=== PATIENT | male | born 1950 | race Caucasian/White ===

== ENCOUNTER 2017-11-02 16:19 | Emergency (ER) | payer BC ==
[~2017-11-02 16:19] MED LIST: Iopamidol 370 76% 100 ML VIAL ONE
[2017-11-02 16:53] LABS: #Basophils 0.1 thou/uL (0.0-0.2); #Eosinphils 0.2 thou/uL (0.0-0.7); #Lymphocytes 1.2 thou/uL (1.20-3.40); #Monocytes 0.8 thou/uL (0.11-0.59); #Neutrophils 7.5 thou/uL (1.40-6.50); %Basophils 1.2 % (0.0-1.0); %Eosinophils 1.6 % (0.0-10.0); %Lymphocytes 12.7 % (21.0-51.0); %Monocytes 7.8 % (0.0-10.0); %Neutrophils 76.7 % (42.0-75.0); Hemoglobin 13.6 g/dL (14.0-18.0); Mean Corpuscular HGB CONC 34.8 g/dL (32.0-36.0); Mean Corpuscular Hemoglobin 30.1 pg (27.0-31.0); Mean Corpuscular Volume 86.7 fl (80.0-94.0); Mean Platelet Volume 7.5 fL (7.4-10.4); Platelet Count 187 thou/uL (130-400); RBC Distribution Width 11.3 % (11.5-14.5); Red Blood Cell (RBC) Count 4.52 mill/uL (4.70-6.10); White Blood Cell (WBC) Count 9.7 thou/uL (4.8-10.8)
[2017-11-02] MEDS ORDERED: Ondansetron HCl/PF 4 MG/2 ML Vial ONE (16:54)
[2017-11-02] MEDS ORDERED: Morphine 10 MG/ML VIAL ONE (16:54)
[2017-11-02 17:10] LABS: ALT (SGPT) 24 U/L (8-55); AST (SGOT) 15 U/L (5-34); Albumin 3.9 g/dL (3.4-4.8); Alkaline Phosphatase 71 U/L (40-150); Anion Gap 11 mmol/L (10-20); BUN (Urea Nitrogen) 16 mg/dL (8.4-25.7); Bilirubin, Total 0.6 mg/dL (0.2-1.2); CKMB 0.5 ng/mL (0-6.6); Calc. Creatinine Clearance 0 mL/min (70-130); Calcium 9.1 mg/dL (7.8-10.44); Carbon Dioxide 25 mmol/L (23-31); Chloride 109 mmol/L (98-107); Estimated GFR-MDRD 88; Globulin 3.1 g/dL (2.4-3.5); Glucose 120 mg/dL (80-115); Lipase 15 U/L (8-78); Potassium 3.7 mmol/L (3.5-5.1); Sodium 141 mmol/L (136-145); Troponin I Less than 0.010 ng/mL (< 0.028)
[2017-11-02 17:13] LABS: Bilirubin Negative (Negative); Blood, Urine Trace (Negative); Clarity Clear (Clear); Glucose, Urine (Dipstick) Negative (Negative); Leukocyte Negative (Negative); Nitrite Negative (Negative); Protein, Urine (Dipstick) Negative (Neg-Trace); Specific Gravity, Urine 1.015 (1.005-1.030); Urobilinogen 0.2 mg/dL (0.2-1.0)
[2017-11-02 17:22] LABS: RBC/HPF 0-3 HPF (0-3)
[2017-11-02 17:23] LABS: Bacteria/HPF Rare-Few HPF (None Seen); Squamous Epithelial None Seen HPF (0-3); WBC/HPF None Seen HPF (0-3)
[2017-11-02] MEDS ORDERED: metroNIDAZOLE 500 MG/100 ML BAG ONE (18:08)
[2017-11-02] MEDS ORDERED: Ciprofloxacin Lactate/D5W 400 mg/200 ml Premix ONE (18:41)
--- NOTE | 2017-11-02 18:57 | CT ---
CT ABDOMEN AND PELVIS WITH IV CONTRAST: 11/02/17 HISTORY: Lower abdominal discomfort. Patient states symptoms are similar to presentation when he had history o f prior diverticulitis. Pain is greater today. COMPARISON: 03/13/16. FINDINGS: There are multiple colonic diverticula seen throughout the colon but greatest involving the distal de scending colon and sigmoid colon. There is an area of abnormal thickening involving the sigmoid colon with adjacent pericolonic inflammatory changes seen. Findings are likely related to diverticulitis. There is a 1.7 cm low density structure seen within the wall of the colon in this region likely relat ed to small abscess formation. There is no percutaneous drainable fluid collection identified. No fr ee intraperitoneal gas is present. There is less distention of the colon when compared to the prior exam. However, there is a moderate a mount of retained fecal material seen throughout the colon suggesting constipation. The lung bases are clear. There are subcentimeter too small to characterize hypodense lesions within the right hepatic lobe as well as in the left hepatic lobe which measure less than 1 cm and are emil tly visualized on the prior exam but less well seen. The spleen, pancreas, and bilateral adrenal glands demonstrate a normal CTA appearance. There is a subcentimeter too small to characterize hypodense lesion again seen in the mid portion of the left kidney. The kidneys otherwise have a normal CT appearance. Abdominal aorta is normal in caliber without evidence of an aortic dissection. Minimal vascular calci fications are present. The appendix is visualized and normal in caliber. The urinary bladder is incompletely distended. There are minimal perivesicular inflammatory changes p robably related to the adjacent diverticulitis within the sigmoid colon. IMPRESSION: 1. Findings most compatible with diverticulitis involving the sigmoid colon with what appears to be small focal abscess collection within the wall of the sigmoid colon measuring 1.7 cm. Followup to complete resolution is recommended to exclude underlying neoplastic process and ensure resolution of the bowel wall thickening. 2. No free intraperitoneal gas is seen, and there is no percutaneously drainable fluid collectio n present. 3. Subcentimeter too small to characterize hypodense lesions in the liver and left kidney. 4. No CT evidence of appendicitis. 5. Small fat containing left inguinal hernia. POS: [facility]
== END 2017-11-02 20:03 | disposition home or self-care (01) ==
LOC: SCSER 16:19
DX: K57.32 Diverticulitis of large intestine without perforation or abscess without bleeding (principal); Z87.891 Personal history of nicotine dependence; Z79.899 Other long term (current) drug therapy
CPT/HCPCS: 74177; 80053; 81003; 81015; 82553; 83690; 84484; 85025; 96361; 96365; 96367; 96375; J0744; J2270; J2405

== ENCOUNTER 2019-06-09 08:23 | Outpatient (CLI) | payer MEDICARE, BC ==
[2019-06-09] MEDS ORDERED: Iopamidol 370 76% 100 ML VIAL ONE (09:00)
--- NOTE | 2019-06-09 11:14 | CT ---
CT OF THE BRAIN WITHOUT AND WITH CONTRAST: Date: 06/09/19 COMPARISON: None. HISTORY: Left arm and leg weakness with slurred speech for 3 days after oral surgery in March. TECHNIQUE: Multiple contiguous axial images were obtained in a CT of the brain without and with IV contrast. FINDINGS: The brain is normal in morphology and attenuation without focal lesions or confluent areas of infarct ion. There is no evidence of hydrocephalus, intracranial hemorrhage, or extra-axial fluid collection. The calvarium and overlying soft tissues are unremarkable. There is a mucus retention cyst in the lef t maxillary sinus. The mastoid air cells are well aerated. IMPRESSION: No evidence of acute intracranial abnormality. POS: [facility]
== END 2019-06-09 08:24 | disposition home or self-care (01) ==
LOC: SCSCT 08:23
PROVIDERS: ATTEND Family Medicine
DX: I63.9 Cerebral infarction, unspecified (principal); R53.1 Weakness
CPT/HCPCS: 70470; 82565; Q9967

== ENCOUNTER 2019-06-20 09:58 | Outpatient (CLI) | payer MEDICARE, BC ==
--- NOTE | 2019-06-20 10:59 | MRI ---
EXAM: Left shoulder MRI without contrast: HISTORY: Acute pain left shoulder COMPARISON: None FINDINGS: Multiplanar, multisequence MRI examination of the shoulder is performed. A C joint:Marked arthrosis of the A/C joint with subchondral cystic changes and marked downsloping of the anterior acromion. Supraspinatus tendon: High-grade partial-thickness insertional tear with a potential small full-thick ness component without significant retraction. Infraspinatus tendon: Undersurface and minimally delaminating tear. Biceps tendon: Complete dislocation with associated tendinopathy. Subscapularis tendon: Several undersurface and delaminating tears. Rotator cuff muscles: Mild muscle volume loss of the subscapularis muscle. Glenoid labrum: Extensive labral tear essentially 360 degree. No evidence for acute osteochondral defect or significant abnormal marrow signal. IMPRESSION: Multiple rotator cuff tears as above. Dislocated biceps tendon. Very severe extensive labral tears.
== END 2019-06-20 09:59 | disposition home or self-care (01) ==
LOC: TBSIIMAG 09:58
PROVIDERS: ATTEND Orthopaedic Surgery
DX: M25.512 Pain in left shoulder (principal); M75.112 Incomplete rotator cuff tear or rupture of left shoulder, not specified as traumatic; S46.812A Strain of other muscles, fascia and tendons at shoulder and upper arm level, left arm, initial encounter; S43.402A Unspecified sprain of left shoulder joint, initial encounter; S43.005A Unspecified dislocation of left shoulder joint, initial encounter

== ENCOUNTER 2019-07-21 06:47 | Outpatient (CLI) | payer MEDICARE, BC ==
[2019-07-21 15:27] LABS: #Basophils 0.1 thou/uL (0.0-0.2); #Eosinphils 0.2 thou/uL (0.0-0.7); #Lymphocytes 1.9 thou/uL (1.20-3.40); #Monocytes 0.6 thou/uL (0.11-0.59); #Neutrophils 3.9 thou/uL (1.40-6.50); %Basophils 1.2 % (0.0-1.0); %Eosinophils 3.1 % (0.0-10.0); %Lymphocytes 28.2 % (21.0-51.0); %Monocytes 9.1 % (0.0-10.0); %Neutrophils 58.5 % (42.0-75.0); Hemoglobin 14.9 g/dL (14.0-18.0); Mean Corpuscular HGB CONC 34.3 g/dL (32.0-36.0); Mean Corpuscular Hemoglobin 31.5 pg (27.0-31.0); Mean Corpuscular Volume 91.9 fL (78.0-98.0); Mean Platelet Volume 6.7 fL (7.4-10.4); Platelet Count 223 thou/uL (130-400); Red Blood Cell (RBC) Count 4.73 mill/uL (4.70-6.10); White Blood Cell (WBC) Count 6.6 thou/uL (4.8-10.8)
[2019-07-21 15:30] LABS: Bacteria/HPF None Seen HPF (None Seen); Bilirubin Negative (Negative); Blood, Urine Trace (Negative); Clarity Clear (Clear); Glucose, Urine (Dipstick) Normal (Negative); Leukocyte Negative Leu/uL (Negative); Nitrite Negative (Negative); Protein, Urine (Dipstick) 20 mg/dL (Neg-Trace); Squamous Epithelial 0-3 HPF (0-3); Urobilinogen Normal mg/dL (Less than 2); WBC/HPF 0-3 HPF (0-3)
[2019-07-21 15:40] LABS: RBC/HPF 0-3 HPF (0-3)
[2019-07-21 15:44] LABS: Anion Gap 13 mmol/L (10-20); BUN (Urea Nitrogen) 22 mg/dL (8.4-25.7); Calc. Creatinine Clearance 0 mL/min (70-130); Calcium 9.1 mg/dL (7.8-10.44); Carbon Dioxide 25 mmol/L (23-31); Chloride 107 mmol/L (98-107); Estimated GFR-MDRD 64; Glucose 95 mg/dL (80-115); Potassium 4.2 mmol/L (3.5-5.1); Sodium 141 mmol/L (136-145)
--- NOTE | 2019-07-24 13:11 | EKG ---
Test Reason : Blood Pressure : / mmHG Vent. Rate : 081 BPM Atrial Rate : 081 BPM P-R Int : 142 ms QRS Dur : 082 ms QT Int : 368 ms P-R-T Axes : 056 008 012 degrees QTc Int : 427 ms Normal sinus rhythm Normal ECG Confirmed by SUSANA PACHECO ([id number]) on 07/24/2019 1:11:20 PM Referred By: PRIYANKA Confirmed By:SUSANA PACHECO
== END 2019-07-21 06:48 | disposition home or self-care (01) ==
LOC: LABBT 06:47
PROVIDERS: ATTEND Orthopaedic Surgery Hand Surgery
DX: Z01.818 Encounter for other preprocedural examination (principal); M72.0 Palmar fascial fibromatosis [Dupuytren]
CPT/HCPCS: 80048; 81001; 85025; 93005; 93010

== ENCOUNTER 2019-07-28 11:39 | Day surgery (SDC) | payer MEDICARE, BC ==
[2019-07-21 14:31] VITALS: BMI 25.7
[~2019-07-28 11:39] MED LIST changes: +Bupivacaine HCl 0.5%/Epinephrine 1:200,000/PF 30 ml Vial ONE; +Dexamethasone 20 MG/5 ML VIAL ONE; -Iopamidol 370 76% 100 ML VIAL ONE; +Ketorolac Tromethamine 30 MG/ML VIAL ONE; +Lidocaine 1% PF 5 ML VIAL ONE; +Metoclopramide HCl 10 MG/2 ML VIAL ONE; +Ondansetron PF 4 MG/2 ML Vial ONE; +PHENYLEPHRINE-NS 100 MCG/ML 10 ML SYRINGE ONE; +PROPOFOL 200 MG/20 ML VIAL ONE; +ePHEDrine/0.9% NaCl/PF SYRINGE 50 mg/10 ml ONE
[2019-07-28] MEDS ORDERED: Midazolam HCl 2 mg/2 ml Vial ONE (14:26)
[2019-07-28] MEDS ORDERED: Fentanyl 100 MCG/2 ML VIAL ONE ×2 (14:26→16:56)
[2019-07-28] MEDS ORDERED: Bacitracin Zinc Ointment 30 gm TUBE ONE (16:55)
[2019-07-28] MEDS ORDERED: Sodium Chloride 0.9% 10 ML ONE (16:55)
[2019-07-28] MEDS ORDERED: Betamet Acet/Betamet Na Ph 30 MG/5 ML VIAL ONE (16:55)
[2019-07-28] MEDS ORDERED: Bupivacaine PF 0.5% 30 ML VIAL ONE (16:55)
[2019-07-28] MEDS ORDERED: Lidocaine 2% Jelly 5 ML TUBE ONE (16:56)
--- NOTE | 2019-07-29 09:48 | OP ---
DATE OF PROCEDURE: 07/28/2019 PREOPERATIVE DIAGNOSES: Left small finger and ring finger Dupuytren cord with significant greater than 65 degree loss of extension at the small finger proximal phalangeal joint and metacarpophalangeal joint. POSTOPERATIVE DIAGNOSES: Left small finger and ring finger Dupuytren cord with significant greater than 65 degree loss of extension at the small finger proximal phalangeal joint and metacarpophalangeal joint. FINDINGS: 1. Left small finger cord being almost 5 mm thick, especially the terminal end, extending from the left small finger transverse carpal ligament to distal interphalangeal joint, more ulnar, palmar and dorsal that was marked and entwined in neurovascular bundles. 2. Left ring finger transverse carpal ligament P1 base cord 3 mm at its thickest. PROCEDURES PERFORMED: 1. Left subtotal palmar fasciectomy involving the left small finger and ring finger. 2. Left ring finger digital nerve neuroplasty x2. 3. Left small finger digital nerve neuroplasty x2. 4. Application of short-arm splint. COMPLICATIONS: None. SPECIMENS SENT: Large thickened cord from the left hand, total cord length was 17 cm. TOURNIQUET TIME: 95 minutes at 250 mmHg pressure. BLOOD LOSS: Less than 20 mL. DESCRIPTION OF PROCEDURE: After successful general anesthesia, which was preempted by preop excellent block, supraclavicular, the patient's limb was prepped and draped. Time-out was done appropriately. We then outlined the incision that we are going to incorporate in a zigzag fashion to the palmar, fasciectomy for the ring and small finger, and then began Letty incisions on the palmar small finger out to the level of 5 mm distal to the distal interphalangeal joint. We then inflated the tourniquet, after exsanguinating the limb to 250 mmHg pressure, made the zigzag Letty type incision. We carried through skin and subcutaneous tissue, identified a very thick dimple over the A1 elise interval between the small ring finger and both of the cords. Both cords began the transverse carpal ligament in a wide fashion with the ring finger cord proving to be just at the MP joint flexion crease on the base of proximal phalanx and the small finger cord being very complex, first being central then going ulna and into the gutter and going all way to the level of the A4 elise. It was on the most ulnar aspect. Once we began dissection proximally, it was clear that the small finger ulnar neurovascular bundle was entwined in the cord. First, at the level of the proximal A1 elise, the ulnar neurovascular bundle was pulled very superficial and we had to dissect it free from skin, where it was between the dimpling of the skin and the cord itself. Then, the nerve wrapped palmar to the cord and distally it went dorsal to the cord, just proximal to the distal interphalangeal joint. Thus, we followed the neurovascular bundle on the ulnar side via neuroplasty. After doing a radial side neuroplasty, identified the neurovascular bundle here which was only minimally pulled towards the midline superficial by the cord. Once we had done this to the small finger, we then identified the cord at the ring finger, did the neuroplasty all the way to the level of the which was at the ring finger at the level of MP joint flexion crease. A marked skin dimpling was seen along this pass. Now, we identified the cord and neurovascular bundle. At the very distal end of the small finger ulnar aspect, there was a complex relationship requiring multiple very slow careful blunt dissection to free up the nerve and the artery. Once we did this, we began to remove it and we used a combination of [place] blade and tenotomy scissors. The cord connected to the dorsal branch of the digital nerve, as well as the ulnar intrinsics. Once we this, we then had to slowly release it, where we went dorsal to the nerve and neurovascular bundle just at the level A1 elise, the primary cord nodule at the A1 elise on the small finger side of the web space and then dissected it back to where it formed a wire from the ring finger cord. Then, we performed the ring finger digital nerve neuroplasty x2 throughout the entire course, protected the radial and ulnar neurovascular bundles, and then identified the hand of the cord. We lifted the end of cord up from dimpling in the skin between the A1 elise and A2 elise and its insertion on the tendon itself. The tourniquet was then deflated and we removed the cord completely. We had excellent flow and now the MP joint small finger had 0 degrees extension, ring finger and small finger PIP had -10 extension. We then obtained hemostasis. We placed Celestone throughout the entire course of the resected cord and sent the cord to the lab for pathological specimen evaluation. We then closed the wound with interrupted 4-0 nylon and could achieve -5 extension passively of the PIP joint of the small finger without spring back and 0 degrees DIP and MP joint flexion of all other digits. We then placed him in a bacitracin, Adaptic, 4x4, Kerlix, bulky hand type dressing with the small finger and ring finger at 0 degrees MP joint, -5 degrees PIP joint, and 0 degrees DIP joint extension of the digits free within the dressing. He left the operating room without evidence of anesthetic or operative complication, and a pink small ring finger 1 second refill and color was the same as the other digits. Job ID: [id number]
== END 2019-07-28 21:30 | disposition home or self-care (01) ==
LOC: SDC 11:39
PROVIDERS: ATTEND Orthopaedic Surgery Hand Surgery
PROC: 0JNK0ZZ Release Left Hand Subcutaneous Tissue and Fascia, Open Approach (ICD-10-PCS; principal; 2019-07-28)
PROC: 0LN80ZZ Release Left Hand Tendon, Open Approach (ICD-10-PCS; 2019-07-28)
PROC: 0LN80ZZ Release Left Hand Tendon, Open Approach (ICD-10-PCS; 2019-07-28)
PROC: 01N60ZZ Release Radial Nerve, Open Approach (ICD-10-PCS; 2019-07-28)
PROC: 01N60ZZ Release Radial Nerve, Open Approach (ICD-10-PCS; 2019-07-28)
PROC: 01N40ZZ Release Ulnar Nerve, Open Approach (ICD-10-PCS; 2019-07-28)
PROC: 01N40ZZ Release Ulnar Nerve, Open Approach (ICD-10-PCS; 2019-07-28)
DX: M72.0 Palmar fascial fibromatosis [Dupuytren] (principal); Z79.82 Long term (current) use of aspirin; Z79.899 Other long term (current) drug therapy; Z88.5 Allergy status to narcotic agent; Z91.040 Latex allergy status
CPT/HCPCS: 88304; J0670; J0690; J0702; J1100; J1885; J2001; J2250; J2405; J2704; J2765; J3010; J3490; S0020

== ENCOUNTER 2019-12-01 10:13 | Outpatient (CLI) | payer MEDICARE, BC, OTHER ==
[2019-12-01 16:57] LABS: #Eosinphils 0.2 thou/uL (0.0-0.7); #Lymphocytes 2.1 thou/uL (1.20-3.40); #Monocytes 0.6 thou/uL (0.11-0.59); #Neutrophils 3.6 thou/uL (1.40-6.50); %Basophils 0.6 % (0.0-1.0); %Eosinophils 3.6 % (0.0-10.0); %Monocytes 9.6 % (0.0-10.0); %Neutrophils 54.2 % (42.0-75.0); Hemoglobin 13.9 g/dL (14.0-18.0); Mean Corpuscular HGB CONC 34.3 g/dL (32.0-36.0); Mean Corpuscular Hemoglobin 31.8 pg (27.0-31.0); Mean Corpuscular Volume 92.8 fL (78.0-98.0); Mean Platelet Volume 7.2 fL (7.4-10.4); Platelet Count 214 thou/uL (130-400); RBC Distribution Width 11.7 % (11.5-14.5); Red Blood Cell (RBC) Count 4.36 mill/uL (4.70-6.10); White Blood Cell (WBC) Count 6.6 thou/uL (4.8-10.8)
--- NOTE | 2019-12-01 17:00 | RAD ---
CHEST TWO VIEWS: History: Pre-operative exam. Comparison: None FINDINGS: Normal cardiac silhouette. The lungs and pleural spaces are clear. No pneumothorax or acute osseous a bnormalities. IMPRESSION: No acute cardiopulmonary process. POS: [facility]
[2019-12-02 11:19] LABS: SARS-CoV-2 MS2 Positive; SARS-CoV-2 N Gene Negative; SARS-CoV-2 S Gene Negative; SARS-CoV-2 orf1ab Negative
== END 2019-12-01 10:14 | disposition home or self-care (01) ==
LOC: LABBT 10:13
PROVIDERS: ATTEND Orthopaedic Surgery
DX: Z01.818 Encounter for other preprocedural examination (principal); Z11.59 Encounter for screening for other viral diseases; S43.82XA Sprain of other specified parts of left shoulder girdle, initial encounter; M75.112 Incomplete rotator cuff tear or rupture of left shoulder, not specified as traumatic; M67.922 Unspecified disorder of synovium and tendon, left upper arm
CPT/HCPCS: 71046; 85025; 93005; U0002; 87635; 93010; U0003

== ENCOUNTER 2019-12-04 10:07 | Day surgery (SDC) | payer MEDICARE, BC ==
[2019-12-01 15:28] VITALS: BMI 25.1
[~2019-12-04 10:07] MED LIST changes: -Bupivacaine HCl 0.5%/Epinephrine 1:200,000/PF 30 ml Vial ONE; +Glycopyrrolate 0.2 MG/ML 5 ML SYRINGE ONE; -Ketorolac Tromethamine 30 MG/ML VIAL ONE; -Metoclopramide HCl 10 MG/2 ML VIAL ONE; +Rocuronium Bromide 10 MG/ML (10ML VIAL) ONE; +Ropivacaine 0.5% HCl/PF (150 MG/30 ML VIAL) ONE; +Succinylcholine Chloride 20 MG/ML 10 ml SYRINGE FS ONE; -ePHEDrine/0.9% NaCl/PF SYRINGE 50 mg/10 ml ONE
[2019-12-04] MEDS ORDERED: Midazolam HCl 2 mg/2 ml Vial ONE (10:17)
[2019-12-04] MEDS ORDERED: Fentanyl 100 MCG/2 ML VIAL ONE (10:42)
[2019-12-04] MEDS ORDERED: Promethazine HCl 25 MG/ML VIAL IM PRN (12:58)
[2019-12-04] MEDS ORDERED: Zolpidem Tartrate 5 MG TAB PO PRN (12:58)
[2019-12-04] MEDS ORDERED: Ondansetron PF 4 MG/2 ML Vial IVP PRN (12:58)
[2019-12-04] MEDS ORDERED: Acetaminophen 325 MG TAB PO PRN (12:58)
[2019-12-04] MEDS ORDERED: Ropivacaine 0.2% 550 ML 550 ML NERVE BLCK SCH (12:58)
[2019-12-04] MEDS ORDERED: Fentanyl 100 MCG/2 ML VIAL IV PRN (12:59)
--- NOTE | 2019-12-04 13:43 | HP ---
HISTORY OF PRESENT ILLNESS: Mr. Alaniz is a 69-year-old male, who presents with left shoulder pain. The patient fell on a deer leg sticking over the bumper, landing on the ground, re-injured his shoulder all on the fall. He has been managed conservatively at this point because of previous hand surgery for Dupuytren contracture. 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 His pain has gotten worse, it is limiting his sleep. He is having difficulty with the constant pain in his left shoulder. PAST MEDICAL HISTORY: Inguinal hernia, umbilical hernia, hypertension, reflux. PAST SURGICAL HISTORY: Herniorrhaphy, inguinal repair/revision vasectomy, hernia repair, umbilical hernia repair. MEDICATIONS: 1. Prilosec. 2. Tylenol. ALLERGIES: SEASONAL ALLERGIES. HYDROCODONE CAUSES HIM TO BE NAUSEATED. NO PROBLEMS WITH TYLENOL NO. 4. SOCIAL HISTORY: The patient is a former smoker, quit in 2005. Rarely drinks. 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 PHYSICAL EXAMINATION: GENERAL: Alert and oriented male, in no acute distress, resting comfortably in bed. EXTREMITIES: Left upper extremity, the patient has internal rotation of 160 and external rotation of 50, supraspinatus strength 4+/5, infraspinatus strength 4+/ 5, subscap strength 4/5, pain with overhead, neurovascularly intact distally. IMAGING STUDIES: MRI from 2019 showed the subluxed biceps, undersurface tearing of the subscap, partial-thickness supraspinatus tear. ASSESSMENT: 1. Incomplete tear of the supraspinatus. 2. Biceps tendinopathy with subluxation. 3. High-grade subscap tear. PLAN: The patient will be taken to the operating suite for biceps tenodesis with an open rotator cuff repair of the subscapularis and supraspinatus as needed. I discussed with him that, given some of the atrophy in his subscap that this can actually fail, there are risks associated with that. I discussed that there is a risk of a Pollo deformity, risk of damage to vital structures, nerves, arteries , tendon, decreased range of motion and strength, blood clots, loss of life or limb. The patient understands all the risks and benefits, he elected to proceed. The patient will receive a block per Anesthesia, will be taken back, will be discharged to home while he is stable. Job ID: [id number] [facility]TD[facility]
--- NOTE | 2019-12-04 21:24 | OP ---
DATE OF PROCEDURE: 12/04/2019 PREOPERATIVE DIAGNOSES: Left subscapularis tear with subluxed biceps, high- grade tear. POSTOPERATIVE DIAGNOSES: 1. Full-thickness subscapularis tear, superior edge with a subluxed biceps tendon. 2. Partial-thickness tear, supraspinatus. PROCEDURES PERFORMED: 1. Open subscapularis repair. 2. Biceps tenodesis. MANAGER ENROLLMENT: Saji Rojas. ANESTHESIOLOGIST: Dr. Lopez. ANESTHESIA: The patient received a general intubation with interscalene block. ESTIMATED BLOOD LOSS: 75 mL. TOURNIQUET TIME: None. IMPLANTS: 5.5 Corkscrews x2, a 4.75 SwiveLock, and a 2.9 BioComposite PushLock. COMPLICATIONS: None. HISTORY: Corbin is a 69-year-old male, who had a fall x2 and acute anterior shoulder pain. The patient had pain with [place] test, external rotation, and internal rotation. I discussed with him risks and benefits of left open subscapularis repair with biceps tenodesis. I discussed that given there is some chronicity of the tear and given the atrophy superiorly, that I am concerned about his subscapularis repair, felt like removal of the biceps would improve his pain as well as improve the footprint and repair by doing open repair. I discussed risks and benefits of surgery to include pain, scar, bleeding, infection, damage to vital structures, failure of repair, Pollo deformity, loss of life or limb, decreased range of motion, and blood clots. The patient understood these risks and benefits and elected to proceed. DESCRIPTION OF PROCEDURE: After time-out was performed designating the patient' s left upper extremity as the operative site based on site, consent, and marking, the left upper extremity was prepped and draped in sterile fashion. An incision was made in the deltopectoral interval down through skin, deltopectoral interval was entered. We were able to come down onto theclavipectoral fascia, came down onto the biceps, which was in the groove and then subluxed superiorly because of the subscap tear coming into the rotator interval. We exposed the biceps, cut it at its base, used a FiberLoop to do locking sutures, which we eventually used to anchor it superiorly. We found the footprint of the tear and opened up the footprint. The inferior portion was still attached with capsule on a portion of the subscap. The superior portion was torn. We roughened up the lesser and placed two 5.5 corkscrews in the footprint, one inferiorly and one superiorly and passed eight suture limbs medially into the remnant portion of the subscapularis. We then sewed those all 4 horizontal mattress sutures. I then passed four limbs inferiorly and four limbs superiorly through the lip of the remnant of the subscap and its peeled-off aspect of the patient's biceps interval covering. We allowed a little lift so that we could place the biceps. After doing that, we passed 4 sutures and a 2.9 PushLock inferiorly for a double row equivalent on the implant on the subscap to help to smash down on the subscap interface, used two other suture limbs to pass through the biceps and sewed it down at one fixed point. We then took four limbs superiorly into 4.75 SwiveLock as well as the sutures that we had run with the FiberLoop through the biceps and anchored the biceps into the bicipital groove, pulling them in place, took two more suture limbs, which I before completely tied down and sewed the biceps down superiorly. We then cut the sutures. We used #2 Ethibond to attach the remnant interval and sew the biceps end superiorly as well as closed the rotator interval. We closed those with [id number] sutures. We then cut all the limbs. We washed. We closed the deltopectoral interval with 0 Vicryl [id number]. We then closed subcu with 2-0 and kimberly. The patient will be placed in a sling. He will follow up with me in 2 weeks to remove kimberly and begin passive external rotation at that time, and begin elbow , wrist, and hand motion at this time and will be sent home with Tylenol for pain. Job ID: [id number] [facility]
== END 2019-12-04 15:00 | disposition home or self-care (01) ==
LOC: SDC 10:07
PROVIDERS: ATTEND Orthopaedic Surgery
PROC: 0LS40ZZ Reposition Left Upper Arm Tendon, Open Approach (ICD-10-PCS; principal; 2019-12-04)
PROC: 0LM20ZZ Reattachment of Left Shoulder Tendon, Open Approach (ICD-10-PCS; 2019-12-04)
PROC: 3E0T3BZ Introduction of Anesthetic Agent into Peripheral Nerves and Plexi, Percutaneous Approach (ICD-10-PCS; 2019-12-04)
DX: S46.012A Strain of muscle(s) and tendon(s) of the rotator cuff of left shoulder, initial encounter (principal); S43.082A Other subluxation of left shoulder joint, initial encounter; G89.18 Other acute postprocedural pain; I10 Essential (primary) hypertension; K21.9 Gastro-esophageal reflux disease without esophagitis; Z87.891 Personal history of nicotine dependence; Z79.899 Other long term (current) drug therapy; Z88.1 Allergy status to other antibiotic agents; Z88.5 Allergy status to narcotic agent; Z91.040 Latex allergy status; W01.198A Fall on same level from slipping, tripping and stumbling with subsequent striking against other object, initial encounter
CPT/HCPCS: 23410; 23430; 64416; A4306; C1713 ×2; J0690; J1100; J2001; J2250; J2405; J2704; J2795; J3010

== ENCOUNTER 2022-02-03 10:38 | Outpatient (CLI) | payer MEDICARE, BC ==
[2022-02-03 11:59] LABS: Hemoglobin 13.9 g/dL (13.5-17.5); Mean Corpuscular HGB CONC 34.3 g/dL (32.0-36.0); Mean Corpuscular Hemoglobin 30.5 pg (27.0-33.0); Mean Platelet Volume 9.5 fl (7.4-10.4); Platelet Count 184 10x3/uL (150-450); RBC Distribution Width 12.2 % (11.5-14.5); Red Blood Cell (RBC) Count 4.55 10x6/uL (4.32-5.72)
== END 2022-02-03 10:39 | disposition home or self-care (01) ==
LOC: LABBT 10:38
PROVIDERS: ATTEND Orthopaedic Surgery Hand Surgery
DX: Z01.812 Encounter for preprocedural laboratory examination (principal); D48.7 Neoplasm of uncertain behavior of other specified sites; M72.0 Palmar fascial fibromatosis [Dupuytren]; Z20.822 Contact with and (suspected) exposure to COVID-19
CPT/HCPCS: 85027; 87811

== ENCOUNTER 2022-02-07 07:21 | Day surgery (SDC) | payer MEDICARE, BC ==
[2022-02-06 12:19] VITALS: BMI 26.4
[2022-02-07] MEDS ORDERED: Betamet Acet/Betamet Na Ph 30 MG/5 ML VIAL ONE (09:36)
[2022-02-07] MEDS ORDERED: Bupivacaine PF 0.5% 30 ML VIAL ONE (09:36)
[2022-02-07] MEDS ORDERED: Bacitracin Zinc Ointment 30 gm TUBE ONE (09:36)
[2022-02-07] MEDS ORDERED: Neomycin-Polymyxin 1 ML AMP ONE (09:36)
[2022-02-07] MEDS ORDERED: Midazolam HCl 2 mg/2 ml Vial ONE (10:22)
[2022-02-07] MEDS ORDERED: HYDROmorphone 2 MG/ML VIAL ONE (10:28)
[2022-02-07] MEDS ORDERED: fentaNYL Citrate/PF 100 MCG/2 ML SYRINGE ONE (10:28)
[2022-02-07] MEDS ORDERED: CEFAZOLIN 2 GM VIAL ONE (10:38)
[2022-02-07] MEDS ORDERED: Sodium Chloride 0.9% 100 ML ONE (10:38)
[2022-02-07] MEDS ORDERED: Ondansetron PF 4 MG/2 ML Vial ONE (10:51)
[2022-02-07] MEDS ORDERED: Dexamethasone 20 MG/5 ML VIAL ONE (10:51)
[2022-02-07] MEDS ORDERED: PROPOFOL 200 MG/20 ML VIAL ONE (10:51)
[2022-02-07] MEDS ORDERED: Phenylephrine 10 MG/ML VIAL ONE (10:51)
[2022-02-07] MEDS ORDERED: Lidocaine 1% PF 5 ML VIAL ONE (10:51)
[2022-02-07] MEDS ORDERED: ePHEDrine 50 MG/ML VIAL ONE (10:51)
[2022-02-07] MEDS ORDERED: Ketorolac Tromethamine 30 MG/ML VIAL ONE (12:55)
== END 2022-02-07 14:08 | disposition home or self-care (01) ==
LOC: SDC 07:21
PROVIDERS: ATTEND Orthopaedic Surgery Hand Surgery
PROC: 0JNK0ZZ Release Left Hand Subcutaneous Tissue and Fascia, Open Approach (ICD-10-PCS; principal; 2022-02-07)
PROC: 0LN80ZZ Release Left Hand Tendon, Open Approach (ICD-10-PCS; 2022-02-07)
PROC: 0JBK0ZZ Excision of Left Hand Subcutaneous Tissue and Fascia, Open Approach (ICD-10-PCS; 2022-02-07)
DX: M72.0 Palmar fascial fibromatosis [Dupuytren] (principal); M79.89 Other specified soft tissue disorders; N40.1 Benign prostatic hyperplasia with lower urinary tract symptoms; J30.2 Other seasonal allergic rhinitis; Z87.891 Personal history of nicotine dependence; Z79.02 Long term (current) use of antithrombotics/antiplatelets; Z79.82 Long term (current) use of aspirin; Z79.899 Other long term (current) drug therapy; Z88.1 Allergy status to other antibiotic agents; Z88.5 Allergy status to narcotic agent; Z91.040 Latex allergy status
CPT/HCPCS: 88304; 88305; J0690; J0702; J1100; J1170; J1885; J2250; J2370; J2405; J2704; J3490; S0020

== ENCOUNTER 2022-07-05 12:07 | Outpatient (CLI) | payer MEDICARE, BC ==
[2022-07-05 13:17] LABS: Bilirubin Neg (Negative); Blood, Urine 50 (Negative); Clarity Clear (Clear); Glucose, Urine (Dipstick) Normal (Negative); Ketone, Urine Negative (Negative); Leukocyte Negative (Negative); Nitrite Negative (Negative); Protein, Urine (Dipstick) Negative (Neg-Trace); Urobilinogen Normal mg/dL (Less than 2)
[2022-07-05 13:19] LABS: Hemoglobin 13.5 g/dL (13.5-17.5); Mean Corpuscular HGB CONC 34.9 g/dL (32.0-36.0); Mean Corpuscular Hemoglobin 30.4 pg (27.0-33.0); Mean Corpuscular Volume 87.2 fl (81.2-95.1); Mean Platelet Volume 9.3 fl (7.4-10.4); Platelet Count 238 10x3/uL (150-450); RBC Distribution Width 12.7 % (11.5-14.5); Red Blood Cell (RBC) Count 4.44 10x6/uL (4.32-5.72); White Blood Cell (WBC) Count 5.6 10x3/uL (3.5-10.5)
[2022-07-05 13:33] LABS: Bacteria/HPF None Seen HPF (None Seen); Squamous Epithelial 0-3 HPF (0-3); WBC/HPF 0-3 HPF (0-3)
[2022-07-05 13:39] LABS: Prothrombin Time 10.9 sec (9.5-12.1)
[2022-07-05 13:40] LABS: Anion Gap 14 mmol/L (10-20); BUN (Urea Nitrogen) 19 mg/dL (8.4-25.7); Calc. Creatinine Clearance 0 mL/min (70-130); Calcium 9.4 mg/dL (7.8-10.44); Carbon Dioxide 21 mmol/L (23-31); Chloride 110 mmol/L (98-107); Estimated GFR 79; Glucose 98 mg/dL (80-115); Potassium 4.3 mmol/L (3.5-5.1); Sodium 141 mmol/L (136-145)
== END 2022-07-05 12:08 | disposition home or self-care (01) ==
LOC: LABBT 12:07
PROVIDERS: ATTEND Urology
DX: Z01.812 Encounter for preprocedural laboratory examination (principal); N40.1 Benign prostatic hyperplasia with lower urinary tract symptoms
CPT/HCPCS: 80048; 81001; 85027; 85610; 85730; 87086; 93005; 93010